=== PATIENT | female | born 1940 | race Caucasian/White ===

== ENCOUNTER 2016-11-13 17:32 | Emergency (ER) | payer OTHER ==
[~2016-11-13] VITALS: Ht 154.9 cm; Wt 69.0 kg
[~2016-11-13 17:32] MED LIST: HYDR12.56 PO; METO50 PO; SYNT75TA PO
[2016-11-13] MEDS ORDERED: LORazepam 0.5 MG TAB PO ONE (17:45)
--- NOTE | 2016-11-13 17:53 | PD ---
HPI Chief Complaint: Fall Time Seen by Provider: 17:48 Travel History International Travel<30 days: No Contact w/Intl Traveler<30days: No Traveled to known affect area: No History of Present Illness HPI 76-year-old female presents the emergency department status post fall on a restaurant hitting her anterior right face. Denies loss of consciousness or headache. She is somewhat anxious and somewhat dizzy. Patient denies nausea or vomiting. Patient sustain a laceration to the right anterior cheek. She denies dental injury, or significant back pain. She denies injury to any other part. She states she is up-to-date on her tetanus. Patient denies anticoagulants. She has no known drug allergies. PFSH Past Medical History High Cholesterol: Yes Diminished Hearing: No Glaucoma: Yes Hypertension: Yes Immunizations Current: Yes Menopausal: Yes Social History Alcohol Use: No Tobacco Use: No Substance Use: No Allergies-Medications (Allergen,Severity, Reaction): Coded Allergies: No Known Allergies (Verified , 11/13/16) Reported Meds & Prescriptions Reported Meds & Active Scripts Active Reported Metoprolol Succinate ER 24 HR (Metoprolol Succinate) 50 Mg Tab 50 Mg PO DAILY Latanoprost Opth Drops (Latanoprost) 0.005% Drops 1 Drop EACH EYE HS Refrigerate until opened. Ativan (Lorazepam) 0.5 Mg Tab 0.5 Mg PO DAILY PRN Lipitor (Atorvastatin Calcium) 10 Mg Tab 10 Mg PO HS Levothyroxine (Levothyroxine Sodium) 75 Mcg Tab 75 Mcg PO DIRECTED Hydrochlorothiazide 25 Mg Tab 25 Mg PO DAILY Review of Systems Except as stated in HPI: all other systems reviewed are Neg General / Constitutional: No: Fever Eyes: No: Visual changes HENT: No: Headaches Cardiovascular: No: Chest Pain or Discomfort Respiratory: No: Shortness of Breath Gastrointestinal: No: Abdominal Pain Genitourinary: No: Dysuria Musculoskeletal: No: Pain Skin: No Rash Neurologic: No: Weakness Psychiatric: No: Depression Endocrine: No: Polydipsia Hematologic/Lymphatic: No: Easy Bruising Physical Exam Exam Limitations: Other: (anxious.) Narrative GENERAL: Patient appears anxious and in mild distress. SKIN: Warm and dry. Normal color. Normal turgor. Patient has ecchymosis and swelling of the right maxillary cheek with a 3 cm linear laceration in the vertical orientation. Bleeding is controlled. HEAD: Atraumatic. Normocephalic. Tender along the right maxillary cheek without obvious signs of orbital fracture. EYES: Pupils equal and round. No scleral icterus. No injection or drainage. Ocular motions are full without increased pain. No entrapment noted. ENT: No nasal bleeding or discharge. Mucous membranes pink and moist. No dental injury. Airway is patent. No blood in the posterior pharynx. Airway is patent. NECK: Trachea midline. No bony tenderness or step-off. Range of motion is full without tenderness. CT will be performed. CARDIOVASCULAR: Regular rate and rhythm. No murmurs gallops or rubs. RESPIRATORY: No accessory muscle use. Clear to auscultation. Breath sounds equal bilaterally. No thoracic tenderness with palpation. GASTROINTESTINAL: Abdomen soft, non-tender, nondistended. Hepatic and splenic margins not palpable. MUSCULOSKELETAL: Extremities without clubbing, cyanosis, or edema. No obvious deformities. NEUROLOGICAL: Awake and alert. No obvious cranial nerve deficits. Motor grossly within normal limits. Five out of 5 muscle strength in the arms and legs. Normal speech. PSYCHIATRIC: Appropriate mood and affect; insight and judgment normal. Data Data Last Documented VS Vital Signs Date Time Temp Pulse Resp B/P Pulse Ox O2 Delivery O2 Flow Rate FiO2 11/13/16 18:09 16 100 Room Air 11/13/16 18:04 97.8 82 164/[address] Brain W/O Iv Contrast(Rout) (11/13/16 17:45) Ct Cerv Spine W/O Contrast (11/13/16 17:45) Ct Facial Bones W/O Iv Cont (11/13/16 17:45) Lorazepam (Ativan) (11/13/16 17:45) Lidocai-Epi 1%-1:100,000 Inj (Xylocaine- (11/13/16 18:00) MDM Medical Decision Making Medical Screen Exam Complete: Yes Emergency Medical Condition: Yes Medical Record Reviewed: Yes Differential Diagnosis Slipped and fall. Facial contusion. Laceration. Possible fracture. Intracranial bleed. Cervical strain. Narrative Course Patient is anxious but medically stable at time of exam. Patient is given 0.5 mg [address]orazepam by mouth. CT of the head and neck is ordered. Facial CT is also ordered as well. CT scan of the head, neck, and face are all negative for fracture or acute process per radiologist. Laceration to the right cheek is repaired. See procedure note. 6 stitches were placed. Patient is felt to be stable to be discharged home. Patient is given ibuprofen 600 mg 4 times a day for 10 days. Patient is given extra strength Tylenol 2 tabs every 6 hours when necessary pain #6 Patient is to use ice frequently to the right cheek. Patient should check in with her primary care physician in the next several days to ensure improvement. Sutures should remain in place for 7 days. Patient can return here for suture removal or sooner if worsening symptoms develop. Procedures Procedure Narrative LACERATION LOCATION: Right maxillary cheek LENGTH: 2 cm NUMBER OF STITCHES/BUDDY: 3 interrupted horizontal mattress. 3 interrupted simple. REPAIR: The area of the laceration was prepped with Betadine and sterilely draped. The laceration was infiltrated with 4 mL's 1% lidocaine with epinephrine. The wound was copiously irrigated and explored without evidence of foreign body, tendon injury or neurovascular injury. The wound was closed using 6-0 Ethilon. This was a single layer repair. Antibiotic ointment was applied. The patient was advised to keep the wound clean and dry. Patient tolerated the procedure well. Diagnosis Primary Impression: Fall Qualified Code: W19.XXXA - Fall, initial encounter Additional Impressions: Facial laceration Qualified Code: S01.81XA - Facial laceration, initial encounter Contusion of face Qualified Code: S00.83XA - Contusion of face, initial encounter Referrals: Primary Care Physician 2 days Patient Instructions: General Instructions Additional Instructions: CT scan of the head, neck, and face are all negative for fracture or acute process per radiologist. Laceration to the right cheek is repaired. See procedure note. 6 stitches were placed. Patient is felt to be stable to be discharged home. Patient is given ibuprofen 600 mg 4 times a day for 10 days. Patient is given extra strength Tylenol 2 tabs every 6 hours when necessary pain #6 Patient is to use ice frequently to the right cheek. Patient should check in with her primary care physician in the next several days to ensure improvement. Sutures should remain in place for 7 days. Patient can return here for suture removal or sooner if worsening symptoms develop. Med/Other Pt SpecificInfo: Prescription(s) given Disposition: 01 DISCHARGE HOME Condition: Stable CarlosRalph F. PA Nov 13, 2016 17:53
[2016-11-13] MEDS ORDERED: LIDOCAINE 1%/EPINEPHrine 1:100,000 SOLN 20 ML VIAL INFIL ONE (18:00)
[2016-11-13 18:04] VITALS: BP 164/64; PULSE 82; RESP 16; TEMP 97.8; O2SAT 100
[2016-11-13] MEDS ORDERED: METO50TA11 PO (18:20)
[2016-11-13] MEDS ORDERED: LIPI10TA PO (18:20)
[2016-11-13] MEDS ORDERED: LATA0.002 EACH EYE (18:20)
[2016-11-13] MEDS ORDERED: LEVO75TA3 PO (18:20)
[2016-11-13] MEDS ORDERED: HYDR25TA5 PO (18:20)
[2016-11-13] MEDS ORDERED: LORA-392 PO (18:20)
--- NOTE | 2016-11-13 18:46 | RADHPO ---
EXAM DATE/TIME: 11/13/2016 18:12 [facility] COMPARISON: No previous studies available for comparison. INDICATIONS : Fell and hit head. RADIATION DOSE: 57.24 CTDIvol (mGy) MEDICAL HISTORY : Hypertension. SURGICAL HISTORY : None. ENCOUNTER: Initial ACUITY: 1 day PAIN SCALE: 5/10 LOCATION: cranial TECHNIQUE: Multiple contiguous axial images were obtained of the head. Using automated exposure control and adj ustment of the mA and/or kV according to patient size, radiation dose was kept as low as reasonably a chievable to obtain optimal diagnostic quality images. FINDINGS: CEREBRUM: The ventricles are normal for age. No evidence of midline shift, mass lesion, hemorrhage or acute in farction. No extra-axial fluid collections are seen. POSTERIOR FOSSA: The cerebellum and brainstem are intact. The 4th ventricle is midline. The cerebellopontine angle i s unremarkable. EXTRACRANIAL: The visualized portion of the orbits is intact. SKULL: The calvaria is intact. No evidence of skull fracture. CONCLUSION: Normal examination. Sanjeev Carrillo MD on November 13, 2016 at 18:44 Board Certified Radiologist. This report was verified electronically.
--- NOTE | 2016-11-13 18:48 | RADHPO ---
EXAM DATE/TIME: 11/13/2016 18:12 [facility] COMPARISON: No previous studies available for comparison. INDICATIONS : Fell and hit head. RADIATION DOSE: 24.70 CTDIvol (mGy) MEDICAL HISTORY : Hypertension. SURGICAL HISTORY : None. ENCOUNTER: Initial ACUITY: 1 day PAIN SCALE: 5/10 LOCATION: neck TECHNIQUE: Volumetric scanning of the cervical spine was performed. Multiplanar reconstructions in the sagittal, coronal and oblique axial planes were performed. Using automated exposure control and adjustment o f the mA and/or kV according to patient size, radiation dose was kept as low as reasonably achievable to obtain optimal diagnostic quality images. FINDINGS: Normal alignment. No prevertebral soft tissue swelling or compression deformity. Severe disc space na rrowing at C6-7, moderate disc space narrowing at C5-6. Multilevel osteophyte formation is present. M oderate multilevel facet hypertrophic changes are noted. Odontoid process is intact. Cervicothoracic junction is approximated. Mild multilevel uncovertebral hypertrophy is noted. No fracture or listhesi s. CONCLUSION: Degenerative changes without evidence of acute fracture or listhesis. Sanjeev Carrillo MD on November 13, 2016 at 18:44 Board Certified Radiologist. This report was verified electronically.
--- NOTE | 2016-11-13 18:49 | RADHPO ---
EXAM DATE/TIME: 11/13/2016 18:12 [facility] COMPARISON: No previous studies available for comparison. INDICATIONS : Fell and hit head. Right facial swelling. RADIATION DOSE: 25.58 CTDIvol (mGy) MEDICAL HISTORY : Hypertension. SURGICAL HISTORY : None. ENCOUNTER: Initial ACUITY: 1 day PAIN SCORE: 5/10 LOCATION: Right facial TECHNIQUE: Volumetric scanning of the facial bones was performed. Using automated exposure control and adjustme nt of the mA and/or kV according to patient size, radiation dose was kept as low as reasonably achiev able to obtain optimal diagnostic quality images. FINDINGS: There is subcutaneous emphysema the right base secondary to an overlying skin defect, subcutaneous sw elling and a small hematoma at the level of the laceration. Soft tissue emphysema extends into the ri ght infratemporal fossa posterior to the right maxillary sinus. There is prominent soft tissue swelli ng of the right face. No underlying fractures. Sinuses are well aerated. CONCLUSION: Soft tissue injury as described above right face without fracture. Sanjeev Carrillo MD on November 13, 2016 at 18:46 Board Certified Radiologist. This report was verified electronically.
[2016-11-13] MEDS ORDERED: EXTR500C PO (19:06)
[2016-11-13] MEDS ORDERED: IBUP-232 PO (19:06)
[2016-11-13 19:15] VITALS: BP 140/60
== END 2016-11-13 19:15 | disposition home or self-care (01) ==
LOC: PHEFT 17:32
DX: S01.411A Laceration without foreign body of right cheek and temporomandibular area, initial encounter (principal); S00.83XA Contusion of other part of head, initial encounter; R42 Dizziness and giddiness; I10 Essential (primary) hypertension; W01.10XA Fall on same level from slipping, tripping and stumbling with subsequent striking against unspecified object, initial encounter; Y93.9 Activity, unspecified; Y92.511 Restaurant or cafe as the place of occurrence of the external cause
CPT/HCPCS: 12011; 70450; 70486; 72125